=== PATIENT | female | born 1985 | race Caucasian/White ===

== ENCOUNTER → 2021-06-06 | Outpatient (CLI) | payer BC ==
[~2021-06-06] MED LIST: INDERAL TAB 2020 MG PO; SYNTHROID75 MCG PO
[2021-06-06 11:41] LABS: HEMOGLOBIN 13.5 gm/dl (12.3-15.3); RED BLOOD COUNT 4.32 M/UL (4.00-5.10); WHITE BLOOD COUNT 6.8 K/UL (4.5-11.0)
== END ==
LOC: OPSV2 10:00
PROVIDERS: Obstetrics & Gynecology
DX: Z01.812 Encounter for preprocedural laboratory examination (principal); R10.2 Pelvic and perineal pain
CPT/HCPCS: 36415; 81001; 85025

== ENCOUNTER → 2021-06-18 | Day surgery (SDC) | payer BC ==
[~2021-06-18] MED LIST changes: +COLACE 100MG C100 MG PO; +IBUPROFEN800 MG PO; +ROXICODONE TAB 55 MG PO
== END | disposition home or self-care (01) ==
LOC: OR 05:29
DX: N72 Inflammatory disease of cervix uteri (principal); N80.0 Endometriosis of uterus; N93.9 Abnormal uterine and vaginal bleeding, unspecified; E03.9 Hypothyroidism, unspecified; Z80.41 Family history of malignant neoplasm of ovary; Z88.8 Allergy status to other drugs, medicaments and biological substances; Z91.040 Latex allergy status; Z79.899 Other long term (current) drug therapy; Z20.822 Contact with and (suspected) exposure to COVID-19
CPT/HCPCS: 84703; J0690; J1100; J1885; J2001; J2250; J2405; J2704; J2710; J2795; J3010; J7120